=== PATIENT | male | born 1955 | race African-American/Black ===

== ENCOUNTER 2024-10-23 18:29 | Emergency (ER) | payer OTHER ==
[~2024-10-23] VITALS: Ht 175.3 cm; Wt 73.0 kg
[2024-10-23 18:34] VITALS: BP 141/99; PULSE 70; RESP 16; TEMP 98.1; O2SAT 99
[2024-10-23] MEDS ORDERED: MECL-226 PO (18:39)
[2024-10-23] MEDS ORDERED: PREG25 PO (18:39)
[2024-10-23] MEDS ORDERED: PERCT PO (18:39)
[2024-10-23] MEDS ORDERED: LABE100T51 PO (18:39)
[2024-10-23] MEDS ORDERED: LEVO100 PO (18:39)
== END 2024-10-23 21:00 | disposition left against medical advice (07) ==
LOC: EMS 18:29
DX: M25.511 Pain in right shoulder (principal); M25.562 Pain in left knee; M54.50 Low back pain, unspecified; Z53.21 Procedure and treatment not carried out due to patient leaving prior to being seen by health care provider